=== PATIENT | male | born 1985 | race American Indian/Alaskan Native ===

== ENCOUNTER 2018-12-11 19:35 | Emergency (ER) | payer SELFPAY ==
--- NOTE | 2018-12-11 20:11 | Event Note ---
Date: 12/11/18 33 y.o aadolly was smoking marijuana, started filling dizzy, then passed out for about 15 seconds. Denies any chest pain, but had mild abdominal discomfort. Episode occurred about 5 hrs ago. He states that his head hit the wall then floor in the process. The initial assessment/diagnostic orders/clinical plan/treatment(s) is/are subject to change based on patient's health status,clinical progression and re- assessment by fellow clinical providers in the ED. Further treatment and workup at subsequent clinical providers discretion. Patient/guardian urged not to elope from the ED as their condition may be serious if not clinically assessed and managed.
--- NOTE | 2018-12-11 20:42 | Cat Scan Report ---
CT head/brain wo con INDICATION / CLINICAL INFORMATION: 33 years Male; Syncope. 33-year-old male TECHNIQUE: Routine CT head without contrast. All CT scans at this location are performed using CT dos e reduction for ALARA by means of automated exposure control. COMPARISON: None. FINDINGS: BRAIN / INTRACRANIAL CONTENTS: No acute hemorrhage, mass effect, midline shift, hydrocephalus, or acu te, large territorial infarct. No chronic infarct or focal atrophy. Normal brain volume and ventricul ar/sulcal size for age. No significant white matter abnormality. CRANIOCERVICAL JUNCTION: No significant abnormality. ORBITS: No significant abnormality of visualized orbits. SINUSES / MASTOIDS: No significant abnormality of the visualized paranasal sinuses or mastoid air melo ls. ADDITIONAL FINDINGS: Prominent soft tissue in the roof the nasopharynx, presumably related to reactiv e adenoidal tissue. IMPRESSION: 1. No focal mass, hemorrhage, hydrocephalus, or acute, large territorial infarct. Signer Name: Eugene Jules MD, III Signed: 12/11/2018 8:37 PM Workstation Name: [id number]
[2018-12-11 21:05] LABS: Basophils # (Auto) 0.1 K/mm3 (0.0-0.1); Basophils % (Auto) 0.7 % (0.0-1.8); Eosinophils # (Auto) 0.1 K/mm3 (0.0-0.4); Eosinophils % (Auto) 0.9 % (0.0-4.3); Hematocrit 39.3 % (35.5-45.6); Hemoglobin 13.4 gm/dl (11.8-15.2); Lymphocytes # (Auto) 1.7 K/mm3 (1.2-5.4); Lymphocytes % (Auto) 21.6 % (13.4-35.0); Mean Corpuscular HGB Conc 34 % (32-34); Mean Corpuscular Volume 89 fl (84-94); Monocytes # (Auto) 0.5 K/mm3 (0.0-0.8); Monocytes % (Auto) 5.9 % (0.0-7.3); Platelet Count 201 K/mm3 (140-440); Red Blood Count 4.41 M/mm3 (3.65-5.03); Red Cell Distribution Width 13.9 % (13.2-15.2)
[2018-12-11 21:15] LABS: INR 0.96 (0.87-1.13)
[2018-12-11 21:17] LABS: Creatine Kinase MB 2.7 ng/mL (0.0-4.0)
[2018-12-11 21:22] LABS: Alanine Aminotransferase 25 units/L (7-56); Albumin 4.9 g/dL (3.9-5); BUN/Creatinine Ratio 17; Blood Urea Nitrogen 20 mg/dL (9-20); Calcium 9.6 mg/dL (8.4-10.2); Hemolysis Index 11
--- NOTE | 2018-12-11 21:23 | Emergency Department Report ---
ED Syncope HPI - General Chief Complaint: Syncope Stated Complaint: FALL/HEAD PAIN Time Seen by Provider: 12/11/18 21:00 Source: patient - History of Present Illness Initial Comments: 33-year-old presents to ED following a syncopal episode. Patient states he had sat down to smoke some marijuana. States after a few puffs, he began to feel lightheaded. Patient then stood up and walked to the bathroom to splash water on his face. After leaving the bathroom, pt states he remembers reaching for a chair to sit it. Pt then passed out. Was told by bystander that he hit his head on the wall and then fell to the ground. Patient denies TAPIA, chest pain, SOB, nausea or vomiting. Timing/Prior Episodes: single episode today Precipitating Factors: Positive: lightheadedness Context: standing, other (smoking marijuana) Loss of Consciousness: brief (seconds) Current Symptoms: back to normal - Related Data Allergies/Adverse Reactions: Allergies No Known Allergies Allergy (Unverified 12/11/18 19:38) ED Review of Systems ROS: Stated complaint: FALL/HEAD PAIN Other details as noted in HPI Comment: All other systems reviewed and negative Constitutional: denies: chills, fever Respiratory: denies: shortness of breath Cardiovascular: denies: chest pain Gastrointestinal: denies: abdominal pain, nausea, vomiting, diarrhea Neurological: denies: headache ED Past Medical Hx - Past Medical History Previous Medical History?: No - Surgical History Past Surgical History?: No - Social History Smoking Status: Never Smoker Substance Use Type: Marijuana ED Physical Exam - General Limitations: No Limitations General appearance: alert, in no apparent distress - Head Head exam: Present: normocephalic, other (abrasion to forehead) - Eye Eye exam: Present: normal appearance, PERRL, EOMI - ENT ENT exam: Present: mucous membranes moist - Neck Neck exam: Present: normal inspection, full ROM - Respiratory Respiratory exam: Present: normal lung sounds bilaterally. Absent: respiratory distress - Cardiovascular Cardiovascular Exam: Present: regular rate, normal rhythm - GI/Abdominal GI/Abdominal exam: Present: soft. Absent: distended, tenderness - Extremities Exam Extremities exam: Present: normal inspection, full ROM - Neurological Exam Neurological exam: Present: alert, oriented X3, CN II-XII intact. Absent: motor sensory deficit - Psychiatric Psychiatric exam: Present: normal affect, normal mood - Skin Skin exam: Present: warm, dry, intact, normal color ED Course Vital Signs 12/11/18 12/11/18 12/11/18 20:07 20:10 20:30 Temperature 97.4 F L 97.9 F Pulse Rate 65 62 Pulse Rate [ Sitting] Pulse Rate [ Standing] Respiratory 18 14 14 Rate Blood Pressure 143/71 Blood Pressure 133/69 [Left] Blood Pressure [Sitting] Blood Pressure [Standing] O2 Sat by Pulse 100 100 100 Oximetry 12/11/18 21:24 Temperature Pulse Rate Pulse Rate [ 62 Sitting] Pulse Rate [ 65 Standing] Respiratory Rate Blood Pressure Blood Pressure [Left] Blood Pressure 156/82 [Sitting] Blood Pressure 169/93 [Standing] O2 Sat by Pulse Oximetry ED Medical Decision Making - Lab Data Result diagrams: 12/11/18 20:34 12/11/18 20:34 - EKG Data -: EKG Interpreted by Dc EKG shows normal: sinus rhythm, axis, intervals, QRS complexes, ST-T waves Rate: bradycardia (rate 54) - EKG Data Interpretation: no acute changes - Radiology Data Radiology results: report reviewed, image reviewed Critical care attestation.: If time is entered above; I have spent that time in minutes in the direct care of this critically ill patient, excluding procedure time. ED Disposition Clinical Impression: Syncope Disposition: DC-01 TO HOME OR SELFCARE Is pt being admited?: No Condition: Stable Instructions: Syncope (ED) Referrals: [facility] [Provider Group] - 3-5 Days Time of Disposition: 22:11
--- NOTE | 2018-12-11 21:23 | XRay Report ---
CHEST 1 VIEW INDICATION: Syncope. COMPARISON: None FINDINGS: SUPPORT DEVICES: None. HEART / MEDIASTINUM: No significant abnormality. LUNGS / PLEURA: No significant pulmonary or pleural abnormality. No pneumothorax. ADDITIONAL FINDINGS: IMPRESSION: 1. No acute findings. Signer Name: Rasheed Gao MD Signed: 12/11/2018 9:19 PM Workstation Name: [id number]
[2018-12-11 21:28] VITALS: BP 156/82
== END 2018-12-11 22:20 | disposition home or self-care (01) ==
LOC: ED 19:35
DX: R55 Syncope and collapse (principal); F12.10 Cannabis abuse, uncomplicated
CPT/HCPCS: 36415; 70450; 71045; 80053; 82550; 82553; 84484; 85025; 85610; 93005; 93010